=== PATIENT | female | born 1980 | race African-American/Black ===

== ENCOUNTER 2018-10-12 06:01 | Inpatient (IN) ==
[2018-10-06 13:02] LABS: Basophils % 0.6 % (0.0-0.8); Eosinophils # 0.2 10*3/uL (0.0-0.87); Eosinophils % 3.1 % (0.00-10.9); Hematocrit 37.8 VOL% (35.7-47.0); Hemoglobin 12.5 GM/DL (12.0-16.0); Immature Granulocytes % 0.2 %; Immature Granulocytes Absolute 0.01 #; Lymphocytes # 1.7 10*3/uL (1.4-4.0); Mean Corpuscular HGB Conc 33.1 GM/DL (32-36); Mean Corpuscular Hemoglobin 28 PG (27-34); Mean Platelet Volume 10.1 FL (9.6-12.0); Monocytes # 0.4 10*3/uL (0.11-0.8); Monocytes % 6.4 % (1.7-12.7); Neutrophils % 62.7 % (38.7-73.9); Platelet Count 294 T/CUMM (130-400); White Blood Count 6.4 T/CUMM (4-12)
[2018-10-06 13:08] LABS: Apearance,Urine Slightly Hazy (Clear); Bacteria,Urine Occasional /HPF (Few); Bilirubin,Urine Negative (Negative); Blood, Urine Moderate mg/dL (Negative); Glucose,Urine (UA) Negative (Negative); Ketones,Urine Negative (Negative); Mucus,Urine Occasional /LPF (Occasional); Nitrite,Urine Negative (Negative); Protein,Urine Negative; RBC,Urine 1 /HPF (0-4); Squamous Epithelial Cell,Urine Occasional /HPF (0-10); Urine Color Straw (Yellow); Urine Specific Gravity 1.009 (1.001-1.035); Urine Urobilinogen < 2.0 EU/DL (0.2-1.0); WBC,Urine 1 /HPF (0-6)
[2018-10-06 13:14] LABS: PT Patient Result 10.4 SECS; Partial Thromboplastin Time 26.1 SECS (0-40)
[2018-10-06 14:47] LABS: Osmolality,Calculated 275.5 MOS/KG (273-304); Potassium 3.7 MMOL/L (3.5-5.1)
[2018-10-12] MEDS ORDERED: ceFAZolin 1,000 MG in SYRINGE 1 EACH IV ONE (06:30)
[2018-10-12] MEDS ORDERED: ceFAZolin 1,000 MG VIAL ONE (07:47)
[2018-10-12] MEDS ORDERED: FAMOTIDINE 20 MG TABLET ONE (07:49)
[2018-10-12] MEDS ORDERED: DIAZEPAM 5 MG TABLET ONE (07:49)
[2018-10-12] MEDS ORDERED: FAMOTIDINE 20 MG TABLET PO ONE (07:51)
[2018-10-12] MEDS ORDERED: DIAZEPAM 5 MG TABLET PO ONE (07:51)
[2018-10-12] MEDS: LACTATED RINGERS 1,000 ML IV SCH ×4 (08:15→20:05)
[2018-10-12] MEDS ORDERED: RACEPINEPHRINE 0.5 ML NEB RESP TX ONE (11:30)
[2018-10-12] MEDS ORDERED: HYDROmorphone 2 MG/1 ML VIAL IV PRN ×2 (12:05→13:27)
[2018-10-12] MEDS ORDERED: ONDANSETRON 4 MG/2 ML VIAL IV PRN ×2 (12:05→12:38)
[2018-10-12] MEDS ORDERED: ONDANSETRON 4 MG/2 ML VIAL ONE ×2 (12:10→13:43)
[2018-10-12] MEDS ORDERED: HYDROmorphone 2 MG/1 ML VIAL ONE (12:10)
[2018-10-12 12:35] LABS: Apearance,Urine CLEAR (Clear); Bilirubin,Urine Negative (Negative); Blood, Urine Small mg/dL (Negative); Glucose,Urine (UA) Negative (Negative); Ketones,Urine Negative (Negative); Mucus,Urine Occasional /LPF (Occasional); Nitrite,Urine Negative (Negative); Protein,Urine Negative; RBC,Urine 1 /HPF (0-4); Squamous Epithelial Cell,Urine Few /HPF (0-10); Urine Color Straw (Yellow); Urine Specific Gravity 1.009 (1.001-1.035); Urine Urobilinogen < 2.0 EU/DL (0.2-1.0); WBC,Urine 1 /HPF (0-6)
[2018-10-12] MEDS ORDERED: ACETAMINOPHEN 325 MG TABLET PO PRN (12:38)
[2018-10-12] MEDS ORDERED: BISACODYL 10 MG SUPP RECTAL PRN (12:38)
[2018-10-12] MEDS ORDERED: BENZOCAINE/MENTHOL LOZENGE 18/BOX PO PRN (12:38)
[2018-10-12] MEDS ORDERED: fentaNYL 100 MCG/2 ML VIAL ONE (13:42)
[2018-10-12] MEDS ORDERED: SEVOFLURANE 1 UNIT/15 MINUTE INH ONE (13:42)
[2018-10-12] MEDS ORDERED: DEXAMETHASONE 10 MG/1 ML VIAL ONE (13:42)
[2018-10-12] MEDS ORDERED: PROPOFOL 200 MG/20 ML VIAL IV ONE (13:42)
[2018-10-12] MEDS ORDERED: MIDAZOLAM 2 MG/2 ML VIAL ONE (13:42)
[2018-10-12] MEDS ORDERED: KETOROLAC 30 MG/1 ML VIAL ONE (13:43)
[2018-10-12] MEDS ORDERED: ROCURONIUM 100 MG/10 ML VIAL IV ONE (13:43)
[2018-10-12] MEDS ORDERED: NEOSTIGMINE 10 MG/10 ML VIAL ONE (13:43)
[2018-10-12] MEDS ORDERED: LACTATED RINGERS 1,000 ML IV ONE (13:43)
[2018-10-12] MEDS ORDERED: ACETAMINOPHEN 1,000 MG/100 ML VIAL IV ONE (13:43)
[2018-10-12] MEDS ORDERED: GLYCOPYRROLATE 0.4 MG/2 ML VIAL ONE (13:43)
[2018-10-12] MEDS ORDERED: SODIUM CHLORIDE 0.9% 0 ML IV ONE (17:56)
[2018-10-12] MEDS ORDERED: SODIUM CHLORIDE 0.9% 100 ML IV ONE (17:58)
[2018-10-12] MEDS: ceFAZolin 1,000 MG in SYRINGE 1 EACH IV SCH (18:03)
[2018-10-12] MEDS: oxyCODONE/ACETAMINOPHEN 5-325 MG TABLET PO PRN (23:49)
[2018-10-12] MEDS: IBUPROFEN 800 MG TABLET PO PRN (23:50)
[2018-10-13] MEDS ORDERED: SODIUM CHLORIDE 0.9% 50 ML IV ONE (01:54)
[2018-10-13] MEDS: ceFAZolin 1,000 MG in SYRINGE 1 EACH IV SCH (02:21)
[2018-10-13] MEDS: LACTATED RINGERS 1,000 ML IV SCH ×2 (05:34→05:35)
[2018-10-13] MEDS: ENOXAPARIN 40 MG/0.4 ML SYRINGE SUBCUT SCH ×2 (05:35→06:49)
[2018-10-13 06:17] LABS: Basophils % 0.2 % (0.0-0.8); Hematocrit 32.3 VOL% (35.7-47.0); Hemoglobin 10.8 GM/DL (12.0-16.0); Immature Granulocytes % 0.4 %; Immature Granulocytes Absolute 0.05 #; Lymphocytes # 1.5 10*3/uL (1.4-4.0); Lymphocytes % 12.1 % (21.3-54.2); Mean Corpuscular HGB Conc 33.4 GM/DL (32-36); Mean Corpuscular Hemoglobin 28 PG (27-34); Mean Corpuscular Volume 82.8 FL (87-102); Mean Platelet Volume 10.6 FL (9.6-12.0); Monocytes % 7.7 % (1.7-12.7); Neutrophils # 9.9 10*3/uL (1.4-7.4); Neutrophils % 79.6 % (38.7-73.9); Platelet Count 268 T/CUMM (130-400); Red Cell Distribution Width 13.8 % (9.3-17.3); White Blood Count 12.4 T/CUMM (4-12)
[2018-10-13] MEDS ORDERED: ESTRADIOL VALERATE IM 100 MG/5 ML VIAL IM ONE (07:30)
[2018-10-13] MEDS: hydroCHLOROthiazide 25 MG TABLET PO SCH ×2 (07:44→09:24)
[2018-10-13] MEDS: MAGNESIUM HYDROXIDE SUSP 30 ML UDCUP PO PRN ×2 (07:45→19:54)
[2018-10-13] MEDS: DOCUSATE SODIUM 100 MG CAPSULE PO PRN ×2 (07:46→19:53)
[2018-10-13] MEDS: oxyCODONE/ACETAMINOPHEN 5-325 MG TABLET PO PRN (19:45)
[2018-10-13] MEDS: IBUPROFEN 800 MG TABLET PO PRN (19:46)
[2018-10-14] MEDS: ENOXAPARIN 40 MG/0.4 ML SYRINGE SUBCUT SCH (06:06)
[2018-10-14 07:32] VITALS: BP 127/86
[2018-10-14] MEDS ORDERED: SIMETHICONE CHEW 80 MG TABLET PO PRN (07:32)
[2018-10-14] MEDS: MAGNESIUM HYDROXIDE SUSP 30 ML UDCUP PO PRN (08:58)
[2018-10-14] MEDS: DOCUSATE SODIUM 100 MG CAPSULE PO PRN (08:58)
[2018-10-14] MEDS: hydroCHLOROthiazide 25 MG TABLET PO SCH (08:58)
== END 2018-10-14 10:30 | disposition home or self-care (01) | DRG 743 ==
LOC: N.SDSINP 06:01 → N.OB 12:44
PROVIDERS: ADMIT Specialist; ATTEND Specialist